=== PATIENT | female | born 1995 | race Hispanic/Latino ===

== ENCOUNTER 2019-02-02 11:13 | Emergency (ER) | payer OTHER ==
[~2019-02-02] VITALS: Ht 167.6 cm; Wt 73.1 kg
[2019-02-02] MEDS ORDERED: ACET65SU PO (11:20)
[2019-02-02] MEDS ORDERED: AUGMENTIN 875 MG TAB PO ONE (12:00)
[2019-02-02] MEDS ORDERED: NAPROXEN 250 MG TAB PO ONE (12:00)
[2019-02-02] MEDS ORDERED: NAPR-837 PO (12:14)
[2019-02-02] MEDS ORDERED: AUGM875T28 PO (12:14)
[2019-02-02] MEDS ORDERED: PRED20TA PO (12:14)
[2019-02-02 12:33] VITALS: BP 126/80
== END 2019-02-02 12:24 | disposition home or self-care (01) ==
LOC: M ED 11:13
DX: J02.0 Streptococcal pharyngitis (principal)

== ENCOUNTER → 2021-02-16 | Outpatient (CLI) | payer OTHER ==
[~2021-02-16] MED LIST: ACET65SU PO; AUGM875T28 PO; NAPR-837 PO; PRED20TA PO
--- NOTE | 2021-02-16 18:18 | REP ---
INDICATION: PAIN IN RIGHT HEEL/FOOT COMPARISON: None. TECHNIQUE: Two views right calcaneus. FINDINGS: There is no evidence of acute fracture, dislocation, or intrinsic bone disease.There is no calcaneal spurring. IMPRESSION: Negative exam right calcaneus. <Electronically signed by Angel Pollock > 02/16/21 [id number]
== END ==
LOC: M RAD 17:35
PROVIDERS: ATTEND Physician Assistant
DX: M25.571 Pain in right ankle and joints of right foot (principal)